=== PATIENT | female | born 1945 | race Caucasian/White ===

== ENCOUNTER 2020-02-22 14:46 | Emergency (ER) | payer BC, OTHER ==
[2020-02-22 14:52] VITALS: BMI 27.3
[2020-02-22] MEDS ORDERED: SODIUM CHLORIDE 1,000 ML IV STA (14:53)
[2020-02-22] MEDS ORDERED: ACETAMINOPHEN 1000 MG/100 ML VIAL (NON FORMULARY) IVPB ONE (14:53)
--- NOTE | 2020-02-22 14:54 | PDOC ---
Rapid Medical Evaluation Time Seen by Provider: 02/22/20 14:49 Medical Evaluation: Allergies Allergy/AdvReac Type Severity Reaction Status Date / Time TYREE Inhibitors Allergy Intermediate Swelling Verified 11/29/13 07:22 [Tyree Inhibitors] ARB-Angiotensin Receptor Allergy Intermediate Swelling Verified 11/29/13 07:22 Antagonist ciprofloxacin Allergy Intermediate Nausea Verified 11/29/13 07:22 PERCOCET Allergy Intermediate Nausea Uncoded 11/29/13 07:22 02/22/20 14:49 Pt presents to the ER for headache after a mechanical slip and fall two days ago. She states she slipped on a pee pad and hit her head. Denies LOC, n/v, lightheadedness. She states that she still has a headache. Tried taking m eloxicam with little relief of her symptoms. Denies blood thinner use. Exam: No gross neuro deficits Orders: CT head, tylenol Pt to proceed to the ER for further evaluation Discharge Disposition - Diagnosis Fall, Headache - Referrals - Patient Instructions - Post Discharge Activity
[2020-02-22] MEDS ORDERED: ACETAMINOPHEN INJECTION 100 ML IVPB ONE (15:04)
[2020-02-22 15:21] LABS: BASO % 1.1 % (0-2.0); EOS % 1.5 % (0-4.5); HEMATOCRIT 41.3 % (32.4-45.2); MCH 29.4 pg (25.7-33.7); MCHC 33.9 g/dl (32.0-36.0); MEAN CELL VOLUME 86.6 fl (80-96); MEAN PLT VOLUME 8.5 fl (7.5-11.1); MONO % 5.5 % (3.8-10.2); NEUT % 51.9 % (42.8-82.8); PLATELET COUNT 297 K/MM3 (134-434); RBC 4.77 M/mm3 (3.60-5.2); RDW 13.1 % (11.6-15.6); WHITE BLOOD COUNT 7.6 K/mm3 (4.0-10.0)
[2020-02-22 15:27] LABS: INR 0.79 (0.83-1.09); PROTHROMBIN TIME (PATIENT) 9.3 SEC (9.7-13.0)
[2020-02-22 15:42] LABS: ACTIVATED PTT 29.9 SECONDS (25.2-36.5)
--- NOTE | 2020-02-22 15:52 | PDOC ---
History of Present Illness - General Chief Complaint: Injury Stated Complaint: HEADACHE Time Seen by Provider: 02/22/20 14:49 - History of Present Illness Initial Comments: 02/22/20 15:36 HPI: 74 y/o F Anemia, arthritis, Asthma, diabetes, GERD, HLD, HTN, multiple abdominal surgeries, presents to the ED with headache after falling 2 days ago. She slipped and fell backwards hitting her head and back. She denies loss of consciousness after incident.pain radiates round the circumference of her head and she endorses nausea with no vomiting. She denies , cough, wheezing, inability to ambulate, fevers, chills, diarrhea, bleeding, blurry vision, numbness, tingling. She endorses chest pain, and right arm pain. PMHx: as noted above ROS: as noted SHx: Denies Etoh, IVDA, tobacco use Allergies: multiple drug allergies listed above. ROS: GENERAL/CONSTITUTIONAL: No fever or chills. No weakness. HEAD, EYES, EARS, NOSE AND THROAT: No change in vision. No ear pain or discharge. No sore throat. CARDIOVASCULAR: No chest pain or shortness of breath RESPIRATORY: No cough, wheezing, or hemoptysis. GASTROINTESTINAL: +nausea,no vomiting, diarrhea or constipation. GENITOURINARY: No dysuria, frequency, or change in urination. MUSCULOSKELETAL: +back pain, neck pain NEUROLOGIC: No headache, vertigo, loss of consciousness, or change in strength/sensation. ENDOCRINE: No increased thirst. No abnormal weight change HEMATOLOGIC/LYMPHATIC: No anemia, easy bleeding, or history of blood clots. ALLERGIC/IMMUNOLOGIC: No hives or skin allergy. PE: GENERAL: Awake, alert, and fully oriented, in no acute distress HEAD: No signs of trauma, normocephalic, atraumatic EYES: PERRLA, EOMI, sclera anicteric, conjunctiva clear ENT: Auricles normal inspection, hearing grossly normal, nares patent, oropharynx clear without exudates. Moist mucosa NECK: Normal ROM, supple, no lymphadenopathy, JVD, or masses LUNGS: No distress, speaks full sentences, clear to auscultation bilaterally HEART: Regular rate and rhythm, normal S1 and S2, no murmurs, rubs or gallops, peripheral pulses normal and equal bilaterally.pain reproducible on palptation ABDOMEN: Soft, LLQ tenderness and epigastric tenderness. normoactive bowel sounds. No guarding, no rebound. No masses EXTREMITIES : Normal inspection, Normal range of motion, no edema. No clubbing or cyanosis NEUROLOGICAL: Cranial nerves II through XII grossly intact. Normal speech, normal gait, no focal sensorimotor deficits SKIN: Warm, Dry, normal turgor, no rashes or lesions noted 02/22/20 15:57 Past History - Medical History Allergies/Adverse Reactions: Allergies Allergy/AdvReac Type Severity Reaction Status Date / Time TYREE Inhibitors Allergy Intermediate Swelling Verified 11/29/13 07:22 [Tyree Inhibitors] ARB-Angiotensin Receptor Allergy Intermediate Swelling Verified 11/29/13 07:22 Antagonist ciprofloxacin Allergy Intermediate Nausea Verified 11/29/13 07:22 PERCOCET Allergy Intermediate Nausea Uncoded 11/29/13 07:22 Home Medications: Ambulatory Orders Aspirin Coated [Ecotrin -] 81 mg PO DAILY 09/19/11 Glipizide 10 mg PO DAILY 09/19/11 Metformin HCl [Glucophage] 1,000 mg PO BID 09/19/11 Metoprolol Succinate [Toprol XL -] 50 mg PO BID 09/19/11 Losartan Potassium 50 mg PO DAILY 08/21/13 Albuterol Sulfate Inhaler - [Ventolin HFA Inhaler -] 1 - 2 inh PO QID 11/28/13 Montelukast Na [Singulair -] 10 mg PO HS 11/28/13 Nitroglycerin Sublingual [Nitrostat -] 0.4 mg SL PRN PRN 11/28/13 Omeprazole [Prilosec (RX)] 20 mg PO DAILY 11/28/13 Vitamin B Complex [B Complex] 1 each PO DAILY 11/28/13 Asthma: Yes COPD: No Diabetes: Yes GI Disorders: Yes (ESOPHAGEAL HERNIA) HTN: Yes Hypercholesterolemia: Yes - Surgical History Abdominal Surgery: Yes (LAP) Appendectomy: Yes Cholecystectomy: Yes Orthopedic Surgery: Yes (RIGHT KNEE ARTHROSCOPY) - Immunization History Td Vaccination: Yes Immunization Up to Date: Yes (FLU ) - Psycho-Social/Smoking History Smoking Status: No Smoking History: Never smoked Have you smoked in the past 12 months: No Number of Cigarettes Smoked Daily: 0 If you are a former smoker, when did you quit?: 40YRS AGO Information on smoking cessation initiated: No - Substance Abuse Hx (Audit-C & DAST Scrn) How often the patient has a drink containing alcohol: Never Score: In Men: 4 or > Positive; In Women: 3 or > Positive: 0 Screen Result (Pos requires Nsg. Audit-10AR): Negative In the last yr the pt used illegal drug/Rx for NonMed reason: No Score: Yes response is considered Positive: 0 Screen Result (Positive result requires Nsg. DAST-10): Negative *Physical Exam - Vital Signs Last Vital Signs Temp Pulse Resp BP Pulse Ox 98.2 F 89 19 170/92 100 02/22/20 14:46 02/22/20 14:46 02/22/20 14:46 02/22/20 14:46 02/22/20 14:46 ED Treatment Course - LABORATORY CBC & Chemistry Diagram: 02/22/20 14:51 02/22/20 14:51 - ADDITIONAL ORDERS Additional order review: Laboratory Results 02/22/20 14:51 PT with INR 9.30 L INR 0.79 L 02/22/20 14:51 RBC 4.77 MCV 86.6 MCHC 33.9 RDW 13.1 MPV 8.5 Neutrophils % 51.9 Lymphocytes % 40.0 Monocytes % 5.5 D Eosinophils % 1.5 Basophils % 1.1 - Medications Given in the ED: ED Medications Discontinued Medications Generic Name Dose Route Start Last Admin Trade Name Elisabet PRN Reason Stop Dose Admin Acetaminophen 1,000 mg 02/22/20 14:53 02/22/20 15:19 Ofirmev Injection - IVPB 02/22/20 14:54 1,000 mg ONCE ONE Administration Medical Decision Making - Medical Decision Making 02/22/20 15:52 74 y/o F Anemia, arthritis, Asthma, diabetes, GERD, HLD, HTN, multiple abdominal surgeries, presents to the ED with headache after falling 2 days ago. workup cbc, cmp, 02/22/20 16:37 labs are unremarkable Imaging pending. 02/22/20 16:46 02/22/20 16:[address] There is no evidence of acute intracranial hemorrhage, mass lesions or infarctions. There is a mild degree of diffuse cerebral atrophy with sulcal widening and ventricular dilatation. There is no evidence of fracture or acute bony abnormalities. IMPRESSION: No evidence of acute intracranial pathology. Impression of CT-spine read by radiologist indicated no fractures however earlier narrative is contracdictory have messaged for correction. 02/22/20 17:21 pt reassessed some improvement in pain, headche still persistent reglan ordered. 02/22/20 17:38 radiology will make necessary corrections to report, pt has no fractures. EKG: nsr, twi in lead III, no st elevations will reasses after reglan. 02/22/20 18:25 pt feeling better after reglan. no fractures. Discharge - Discharge Information Problems reviewed: Yes Clinical Impression/Diagnosis: Fall, Headache, Concussion Condition: Stable Disposition: HOME - Admission No - Follow up/Referral Referrals: Ashvin Eason MD [Staff Physician] - - Patient Discharge Instructions Patient Printed Discharge Instructions: DI for Concussion Additional Instructions: It is possible that you may have a concussion. You may experience symptoms such as headaches, sensitivity to light/noise, dizziness, cognitive slowing, difficulty concentrating / remembering, trouble sleeping and drowsiness. These symptoms may last anywhere from hours/days to potentially weeks/months. While these symptoms are very frustrating and perhaps debilitating, it is important that you remember that they will improve over time. Everyone has a different rate of recovery; it is difficult to predict when your symptoms will resolve. In order to allow for your brain to heal after the injury, we recommend that you see your primary physician or a physician knowledgeable in concussion management. You mentioned you will be moving to [place] in the next few days. Establish care with a primary care doctor, and follow up on your condition when you arrive as as of 03/01 GO TO AN ER right away if you are having repeated episodes of vomiting, severe/worsening headache/dizziness or any other symptom that alarms you. We recommended that someone stay with you for the next 24 hours to monitor for these worrisome symptoms. - Post Discharge Activity
[2020-02-22 16:03] LABS: ALBUMIN 3.4 g/dl (3.4-5.0); ALK PHOS 100 U/L (45-117); BILIRUBIN,TOTAL 0.4 mg/dL (0.2-1); BLOOD UREA NITROGEN 14.5 mg/dL (7-18); CALCIUM 9.1 mg/dL (8.5-10.1); CO2 25 mmol/L (21-32); CREATININE 0.6 mg/dL (0.55-1.3); GLUCOSE,RANDOM 238 mg/dL (74-106); SGOT/AST 13 U/L (15-37); SGPT/ALT 21 U/L (13-61); TOT PROT 7.2 g/dl (6.4-8.2)
[2020-02-22 16:11] LABS: ANION GAP 12 MMOL/L (8-16); CHLORIDE 102 mmol/L (98-107); POTASSIUM 4.2 mmol/L (3.5-5.1); SODIUM 138 mmol/L (136-145)
[2020-02-22] MEDS ORDERED: METOCLOPRAMIDE HCL INJECTION 10 MG/2 ML VIAL IVPB ONE (17:12)
--- NOTE | 2020-02-22 17:23 | PDOC ---
Documentation entered by Karina Darling SCRIBE, acting as scribe for Denisha Albarado DO. Denisha Albarado DO: This documentation has been prepared by the Phong camilo Maria, SCRIBE, under my direction and personally reviewed by me in its entirety. I confirm that the documentation accurately reflects all work, treatment, procedures, and medical decision making performed by me. Attending Attestation - Resident Resident Name: Gina Longoria - ED Attending Attestation I have performed the following: I have examined & evaluated the patient, The case was reviewed & discussed with the resident, I agree w/resident's findings & plan, Exceptions are as noted - HPI HPI: 02/22/20 16:20 The patient is a 74 year old female, with a significant PMH of anemia, arthritis, asthma, DM, GERD, HLD, HTN, and multiple abdominal surgeries, who presents to the ED for evaluation of headache for 2 days. Patient notes she slipped and fell two days ago, consequently hitting the back of her head and her back. She denies any LOC at that time. Patient complains of a persistent headache that radiates around her house. She endorses associated nausea without vomit, chest pain, and RUE pain. Allergies: BRITTA inhibitors, ARB-Angiotensin Receptor Antagonist, ciprofloxacin, percocet Surgical History: LAP, appendectomy, cholecystectomy, right knee arthroscopy Social History: Former smoker (quit over 40 years ago) - Physicial Exam PE: 02/22/20 17:20 gen: aaox3, nad heent: PERRL, EOMI, MMM neck: supple, no midline ttp, no stepoffs or deformities heart: +s1s2 reg lungs: cta b/l, anterior chest wall ttp, no crepitus or deformities palpated abd: soft, nt/nd +bs ext: no c/c/e, no ecchymosis, FROM of extremities, muscle strength 5/5 UE and LE, ambulatory with a steady gait back: no midline ttp, no stepoffs or deformities neuro: cn ii-xii grossly intact, no focal deficits - Medical Decision Making 02/22/20 17:22 a/p: 74yo female with a mechanical slip and fall 2 days ago -pt is on a baby asa -told by pmd to come in for eval given more x 2 days -head, c spine, t spine, l spine ct ordered by the resident- all neg -labs reviewed and no elevated trop, stable cxr clear more improved with tylenol, will give reglan -will monitor and reassess 02/22/20 17:24 humerus xray without acute findings shoulder xray without acute findings 02/22/20 17:25 discussed concussion and concussion symptoms/care pt pending ekg 02/22/20 17:38 xrays without acute pathology pt moving to [place] discussed follow up with pmd and neuro upon arrival in [place] next week 02/22/20 18:23 pt feels better after reglan stable for dc to home Heart Score/ECG Review - ECG Intrepretation Comment:: 02/22/20 17:38 sinus at 72, nl axis, nl interval, t wave inversions III which are nonspecific Discharge - Discharge Information Problems reviewed: Yes Clinical Impression/Diagnosis: Fall, Headache, Concussion Condition: Stable Disposition: HOME - Admission No - Follow up/Referral Referrals: Ashvin Eason MD [Staff Physician] - - Patient Discharge Instructions Patient Printed Discharge Instructions: DI for Concussion Additional Instructions: It is possible that you may have a concussion. You may experience symptoms such as headaches, sensitivity to light/noise, dizziness, cognitive slowing, difficulty concentrating / remembering, trouble sleeping and drowsiness. These symptoms may last anywhere from hours/days to potentially weeks/months. While these symptoms are very frustrating and perhaps debilitating, it is important that you remember that they will improve over time. Everyone has a different rate of recovery; it is difficult to predict when your symptoms will resolve. In order to allow for your brain to heal after the injury, we recommend that you see your primary physician or a physician knowledgeable in concussion management. You mentioned you will be moving to [place] in the next few days. Establish care with a primary care doctor, and follow up on your condition when you arrive as as of 03/01 GO TO AN ER right away if you are having repeated episodes of vomiting, severe/worsening headache/dizziness or any other symptom that alarms you. We recommended that someone stay with you for the next 24 hours to monitor for these worrisome symptoms. - Post Discharge Activity
[2020-02-22] MEDS ORDERED: METOCLOPRAMIDE HCL INJECTION 10 MG/2 ML VIAL ONE (17:25)
[2020-02-22 18:21] VITALS: BP 145/65; PULSE 76; TEMP 97.8
--- NOTE | 2020-02-23 09:51 | EKG ---
Test Reason : Blood Pressure : / mmHG Vent. Rate : 072 BPM Atrial Rate : 072 BPM P-R Int : 166 ms QRS Dur : 072 ms QT Int : 382 ms P-R-T Axes : 036 016 007 degrees QTc Int : 418 ms NORMAL SINUS RHYTHM CANNOT RULE OUT ANTERIOR INFARCT (CITED ON OR BEFORE 22-FEB-2020) ABNORMAL ECG WHEN COMPARED WITH ECG OF 21-AUG-2013 18:49, NO SIGNIFICANT CHANGE WAS FOUND Confirmed by KALI MORA MD ([id number]) on 02/23/2020 9:50:55 AM Referred By: Confirmed By:KALI MORA MD
== END 2020-02-22 18:53 | disposition home or self-care (01) ==
LOC: JER 14:46
PROC: 3E033GC Introduction of Other Therapeutic Substance into Peripheral Vein, Percutaneous Approach (ICD-10-PCS; principal; 2020-02-22)
PROC: 3E0337Z Introduction of Electrolytic and Water Balance Substance into Peripheral Vein, Percutaneous Approach (ICD-10-PCS; principal; 2020-02-22)
DX: S06.0X0A Concussion without loss of consciousness, initial encounter (principal); W19.XXXA Unspecified fall, initial encounter
CPT/HCPCS: 36415; 70450-TC; 71045-TC-FY; 72125-TC; 72128-TC; 72131-TC; 73030-TC-RT-FY; 73060-TC-RT-FY; 80053; 84484; 85025; 85610; 85730; 93005; 93010; 96361; 96365; 96375; 99285-25; J0131

== ENCOUNTER 2022-01-12 21:57 | Observation (INO) | payer OTHER ==
[2022-01-12] MEDS ORDERED: ACETAMINOPHEN 1000 MG/100 ML BAG IVPB ONE (23:12)
[2022-01-12] MEDS ORDERED: METOCLOPRAMIDE HCL INJECTION 10 MG/2 ML VIAL IVPB ONE (23:12)
[2022-01-12] MEDS ORDERED: SODIUM CHLORIDE 0.9% 500 ML INFUS.BAG IV ONE (23:13)
[2022-01-12] MEDS ORDERED: METOCLOPRAMIDE HCL INJECTION 10 MG/2 ML VIAL ONE (23:18)
[2022-01-12] MEDS ORDERED: ACETAMINOPHEN INJECTION 100 ML IVPB ONE (23:19)
[2022-01-12 23:55] LABS: BASO % 0.8 % (0-2.0); EOS % 1.7 % (0-4.5); HEMATOCRIT 39.2 % (32.4-45.2); HEMOGLOBIN 13.3 GM/dL (10.7-15.3); LYMPH % 41.9 % (8-40); MCH 29.2 pg (25.7-33.7); MCHC 33.9 g/dl (32.0-36.0); MEAN PLT VOLUME 7.9 fl (7.5-11.1); MONO % 8.4 % (3.8-10.2); NEUT % 47.2 % (42.8-82.8); PLATELET COUNT 280 10^3/uL (134-434); RBC 4.56 M/mm3 (3.60-5.2); URINE APPEARANCE CLEAR; URINE BILIRUBIN NEGATIVE (NEGATIVE); URINE COLOR YELLOW; URINE GLUCOSE (UA) 3+ (NEGATIVE); URINE KETONE TRACE (NEGATIVE); URINE LEUK ESTERASE NEGATIVE (NEGATIVE); URINE NITRITE NEGATIVE (NEGATIVE); URINE PROTEIN NEGATIVE (NEGATIVE); URINE UROBILINOGEN 0.2 mg/dL (0.2-1.0); WHITE BLOOD COUNT 6.2 K/mm3 (4.0-10.0)
[2022-01-13 00:17] LABS: ALBUMIN 3.4 g/dl (3.4-5.0); BLOOD UREA NITROGEN 19.3 mg/dL (7-18)
[2022-01-13 00:20] LABS: CREATININE 0.7 mg/dL (0.55-1.3)
[2022-01-13 00:21] LABS: BILIRUBIN,TOTAL 0.3 mg/dL (0.2-1)
[2022-01-13 00:25] LABS: N-TERMINAL BNP 169.3 pg/ml (5-450)
[2022-01-13] MEDS ORDERED: ALBUTEROL SO4 HFA INHALER IH PRN (03:28)
[2022-01-13 07:28] LABS: BASO % 0.8 % (0-2.0); EOS % 1.2 % (0-4.5); HEMATOCRIT 38.7 % (32.4-45.2); HEMOGLOBIN 13.4 GM/dL (10.7-15.3); MCH 29.7 pg (25.7-33.7); MCHC 34.7 g/dl (32.0-36.0); MEAN CELL VOLUME 85.5 fl (80-96); MEAN PLT VOLUME 7.9 fl (7.5-11.1); MONO % 6.8 % (3.8-10.2); NEUT % 49.2 % (42.8-82.8); PLATELET COUNT 296 10^3/uL (134-434); RBC 4.52 M/mm3 (3.60-5.2); RDW 13.2 % (11.6-15.6); WHITE BLOOD COUNT 6.6 K/mm3 (4.0-10.0)
[2022-01-13 08:00] LABS: ALBUMIN 3.5 g/dl (3.4-5.0); BLOOD UREA NITROGEN 14.2 mg/dL (7-18); CALCIUM 8.9 mg/dL (8.5-10.1); MAGNESIUM 1.6 mg/dL (1.8-2.4)
[2022-01-13 08:01] LABS: TOT PROT 7.1 g/dl (6.4-8.2)
[2022-01-13 08:02] LABS: BILIRUBIN,TOTAL 0.4 mg/dL (0.2-1); PHOSPHOROUS 3.8 mg/dL (2.5-4.9)
[2022-01-13 08:03] LABS: CREATININE 0.6 mg/dL (0.55-1.3)
[2022-01-13] MEDS: INSULIN SLIDING SCALE (NOVOLOG) 1 VIAL SQ SCH ×4 (08:18→22:22)
[2022-01-13] MEDS ORDERED: MAGNESIUM SULF 50% (8.12 MEQ/2 ML-1 GM VIAL) IVPB ONE (08:42)
[2022-01-13 09:10] LABS: ERYTHROCYTE SEDIMENTATION RATE 8 mm/hr (0-30)
[2022-01-13] MEDS ORDERED: PATIENT'S OWN MEDICATION (NON-FORMULARY) (Telmisartan [Telmisartan] 40 MG Tablet) PO SCH (10:00)
[2022-01-13] MEDS ORDERED: ENOXAPARIN NA (PORCINE) 40 MG/0.4 ML DISP.SYRIN SQ ONE (10:01)
[2022-01-13] MEDS ORDERED: MAGNESIUM SULFATE IN WATER 2 GM/50 ML IVPB IVPB ONE (10:01)
[2022-01-13] MEDS ORDERED: ASPIRIN COATED 81 MG TABLET.EC ONE (10:01)
[2022-01-13] MEDS ORDERED: METOPROLOL TARTRATE 50 MG TABLET (FP) ONE (10:01)
[2022-01-13] MEDS: ASPIRIN COATED 81 MG TABLET.EC PO SCH (10:08)
[2022-01-13] MEDS: METOPROLOL TARTRATE 50 MG TABLET (FP) PO SCH ×2 (10:08→22:17)
[2022-01-13] MEDS: ENOXAPARIN NA (PORCINE) 40 MG/0.4 ML DISP.SYRIN SQ SCH (10:08)
[2022-01-13 18:02] VITALS: BMI 28.0
[2022-01-13] MEDS ORDERED: MONTELUKAST NA 10 MG TABLET PO SCH (22:00)
[2022-01-13] MEDS: PRAMIPEXOLE DIHYDROCHLORIDE 0.125 MG TABLET PO SCH (22:19)
[2022-01-13] MEDS: TOPIRAMATE 25 MG TABLET PO SCH (22:19)
[2022-01-14] MEDS: INSULIN SLIDING SCALE (NOVOLOG) 1 VIAL SQ SCH ×2 (06:01→14:11)
[2022-01-14 08:43] LABS: BASO % 0.8 % (0-2.0); EOS % 1.3 % (0-4.5); HEMATOCRIT 36.4 % (32.4-45.2); HEMOGLOBIN 12.4 GM/dL (10.7-15.3); LYMPH % 38.8 % (8-40); MCH 29.2 pg (25.7-33.7); MEAN CELL VOLUME 85.7 fl (80-96); MEAN PLT VOLUME 8.5 fl (7.5-11.1); MONO % 7.4 % (3.8-10.2); NEUT % 51.7 % (42.8-82.8); PLATELET COUNT 277 10^3/uL (134-434); RBC 4.25 M/mm3 (3.60-5.2); RDW 12.9 % (11.6-15.6); WHITE BLOOD COUNT 6.8 K/mm3 (4.0-10.0)
[2022-01-14 09:26] LABS: ALBUMIN 3.1 g/dl (3.4-5.0); BLOOD UREA NITROGEN 14.9 mg/dL (7-18)
[2022-01-14 09:28] LABS: CALCIUM 8.7 mg/dL (8.5-10.1)
[2022-01-14 09:29] LABS: MAGNESIUM 1.8 mg/dL (1.8-2.4)
[2022-01-14 09:31] LABS: CREATININE 0.5 mg/dL (0.55-1.3); PHOSPHOROUS 3.2 mg/dL (2.5-4.9)
[2022-01-14 09:32] LABS: BILIRUBIN,TOTAL 0.6 mg/dL (0.2-1)
[2022-01-14 09:33] LABS: TOT PROT 6.4 g/dl (6.4-8.2)
[2022-01-14] MEDS ORDERED: PANTOPRAZOLE 20 MG TABLET PO SCH (10:00)
[2022-01-14] MEDS: METOPROLOL TARTRATE 50 MG TABLET (FP) PO SCH (10:42)
[2022-01-14] MEDS: TOPIRAMATE 25 MG TABLET PO SCH (10:42)
[2022-01-14] MEDS: ASPIRIN COATED 81 MG TABLET.EC PO SCH (10:42)
[2022-01-14] MEDS: PRAMIPEXOLE DIHYDROCHLORIDE 0.125 MG TABLET PO SCH (10:43)
[2022-01-14] MEDS: ENOXAPARIN NA (PORCINE) 40 MG/0.4 ML DISP.SYRIN SQ SCH (10:44)
[2022-01-14 16:01] VITALS: BP 129/77; PULSE 70; TEMP 97.9
== END 2022-01-14 16:24 | disposition home or self-care (01) ==
LOC: JER 21:57 → JERBED 01-13 01:42 → J8W 01-13 17:06
PROVIDERS: ADMIT Internal Medicine; ATTEND Internal Medicine
PROC: 3E033NZ Introduction of Analgesics, Hypnotics, Sedatives into Peripheral Vein, Percutaneous Approach (ICD-10-PCS; principal; 2022-01-13)
PROC: 3E013VG Introduction of Insulin into Subcutaneous Tissue, Percutaneous Approach (ICD-10-PCS; 2022-01-13)
PROC: 3E033GC Introduction of Other Therapeutic Substance into Peripheral Vein, Percutaneous Approach (ICD-10-PCS; 2022-01-13)
PROC: 3E0337Z Introduction of Electrolytic and Water Balance Substance into Peripheral Vein, Percutaneous Approach (ICD-10-PCS; 2022-01-13)
DX: I25.10 Atherosclerotic heart disease of native coronary artery without angina pectoris (principal); E78.00 Pure hypercholesterolemia, unspecified; R06.09 Other forms of dyspnea; R06.02 Shortness of breath; K44.9 Diaphragmatic hernia without obstruction or gangrene; D64.9 Anemia, unspecified; R51.9 Headache, unspecified; J45.909 Unspecified asthma, uncomplicated; I10 Essential (primary) hypertension; I51.7 Cardiomegaly; E11.9 Type 2 diabetes mellitus without complications; Z90.49 Acquired absence of other specified parts of digestive tract; H53.9 Unspecified visual disturbance; K21.9 Gastro-esophageal reflux disease without esophagitis; Z86.73 Personal history of transient ischemic attack (TIA), and cerebral infarction without residual deficits; Z29.8 Encounter for other specified prophylactic measures; Z88.8 Allergy status to other drugs, medicaments and biological substances; I11.9 Hypertensive heart disease without heart failure
CPT/HCPCS: 36415; 70450-TC; 71045-TC-FY; 80053; 80061; 81003; 82728; 82962; 83036; 83540; 83550; 83735; 83880; 84100; 84439; 84443; 84481; 84484; 85025; 85651; 86140; 87086; 93005; 93010; 93880-TC; 96365; 96372; 96375; 99285-25; C9803-CS; G0378; U0003; U0005

== ENCOUNTER 2023-01-05 14:36 | Emergency (ER) | payer OTHER ==
[2023-01-05 14:58] VITALS: BP 148/67; PULSE 85; RESP 20; TEMP 97.6; BMI 32.3
[2023-01-05] MEDS ORDERED: ACETAMINOPHEN 1000 MG/100 ML BAG IVPB ONE (16:49)
[2023-01-05] MEDS ORDERED: METOCLOPRAMIDE HCL INJECTION 10 MG/2 ML VIAL IVPUSH ONE (16:50)
[2023-01-05] MEDS ORDERED: LACTATED RINGERS SOLUTION 1000 ML INFUS.BAG IV ONE (16:50)
[2023-01-05] MEDS ORDERED: ACETAMINOPHEN INJECTION 100 ML IVPB ONE (16:58)
[2023-01-05] MEDS ORDERED: METOCLOPRAMIDE HCL INJECTION 10 MG/2 ML VIAL ONE (16:58)
== END 2023-01-05 19:56 | disposition home or self-care (01) ==
LOC: JER 14:36
PROC: 3E033NZ Introduction of Analgesics, Hypnotics, Sedatives into Peripheral Vein, Percutaneous Approach (ICD-10-PCS; principal; 2023-01-05)
PROC: 3E033GC Introduction of Other Therapeutic Substance into Peripheral Vein, Percutaneous Approach (ICD-10-PCS; 2023-01-05)
DX: R51.9 Headache, unspecified (principal); F41.9 Anxiety disorder, unspecified; R11.0 Nausea
CPT/HCPCS: 70450-TC; 99284-25